=== PATIENT | female | born 1975 | race Caucasian/White ===

== ENCOUNTER 2021-04-25 16:50 | Emergency (ER) | payer OTHER ==
[2021-04-25 17:03] VITALS: BP 130/80; PULSE 88; TEMP 98; BMI 31.4
== END 2021-04-25 21:42 | disposition home or self-care (01) ==
LOC: FER 16:50
DX: S52.124A Nondisplaced fracture of head of right radius, initial encounter for closed fracture (principal); W01.0XXA Fall on same level from slipping, tripping and stumbling without subsequent striking against object, initial encounter; W50.0XXA Accidental hit or strike by another person, initial encounter; Y93.21 Activity, ice skating
CPT/HCPCS: 73070-TC-RT-FY; 73090-TC-RT-FY; 73110-TC-RT-FY; 99285-25